=== PATIENT | female | born 1980 | race American Indian/Alaskan Native ===

== ENCOUNTER 2016-10-14 08:15 | Outpatient (CLI) | payer BC ==
--- NOTE | 2016-10-15 10:38 | Ultrasound Report ---
ULTRASOUND OF THE RIGHT UPPER QUADRANT: FINDINGS: There is increased echogenicity of the hepatic parenchyma with no focal masses. The gallbladder is normal. The common bile duct is normal in caliber. The right kidney is unremarkable. The pancreas is normal. The abdominal aorta is normal. IMPRESSION: Hepatic steatosis.
== END 2016-10-14 08:16 | disposition home or self-care (01) ==
LOC: SPVWC 08:16
PROVIDERS: ATTEND Internal Medicine
DX: K76.0 Fatty (change of) liver, not elsewhere classified (principal); R10.11 Right upper quadrant pain
CPT/HCPCS: 76705

== ENCOUNTER 2018-04-22 14:43 | Outpatient (CLI) | payer BC ==
--- NOTE | 2018-04-22 16:14 | Mammography Report ---
BILATERAL DIGITAL SCREENING MAMMOGRAM WITH CAD:04/22/18 CLINICAL: Baseline screening. FINDINGS: The breasts are almost entirely fatty.No mass, architectural distortion or suspicious calcifications. IMPRESSION: No mammographic evidence of malignancy. BI-RADS CATEGORY: 1 -- Negative RECOMMENDATION: Routine mammographic screening based on ACS guidelines. ACR BI-RADS MAMMOGRAPHIC CODES: 0 = Needs additional imaging evaluation; 1 = Negative; 2 = Benign; 3 = Probably benign; 4 = Suspicious; 5 = Malignant; 6 = Known biopsy-proven malignancy COMMENT: 1. Dense breast tissue, i.e., adenosis, fibrocystic changes, etc., may obscure an underlying neoplasm. 2. Approximately 10% of cancers are not detected with mammography. 3. A negative mammography report should not delay biopsy if a clinically suspicious mass is present.
== END 2018-04-22 14:44 | disposition home or self-care (01) ==
LOC: SPVWC 14:43
PROVIDERS: ATTEND Obstetrics & Gynecology
DX: Z12.31 Encounter for screening mammogram for malignant neoplasm of breast (principal)
CPT/HCPCS: 77067

== ENCOUNTER 2019-04-24 12:52 | Outpatient (CLI) | payer BC ==
--- NOTE | 2019-04-25 10:05 | Mammography Report ---
DIGITAL SCREENING MAMMOGRAM WITH CAD, 04/24/2019 INDICATION: Routine screening mammography. TECHNIQUE: Digital bilateral 2D mammography was obtained in the craniocaudal and mediolateral obliq ue projections. This examination was interpreted with the benefit of Computer-Aided Detection analysi s. COMPARISON: 04/22/2018 FINDINGS: Breast Density: The breasts are almost entirely fatty. There is no evidence of dominant mass, suspicious calcifications or architectural distortion in eithe r breast. IMPRESSION: BI-RADS Category 1: Negative. No mammographic evidence of malignancy. Unless otherwise clinically indicated, recommend patient return to routine screening mammography at age 40. A "normal" or negative report should not discourage follow up or biopsy of a clinically significant f inding. A written summary of these findings will be mailed to the patient. The patient will be entered into a mammography reporting system which will generate a reminder letter for the patient's next appointmen t at the appropriate interval. The [employer] recommends yearly mammograms starting at age 40 and continuing as l dionne as a woman is in good health. Breast MRI is recommended for women with an approximate 20-25% or greater lifetime risk of breast cancer, including women with a strong family history of breast or ova nasima cancer or who have been treated for Hodgkin's disease. Signer Name: Capo Kline MD Signed: 04/25/2019 7:45 AM Workstation Name: [id number]
== END 2019-04-24 12:53 | disposition home or self-care (01) ==
LOC: SPVWC 12:52
PROVIDERS: ATTEND Obstetrics & Gynecology
DX: Z12.31 Encounter for screening mammogram for malignant neoplasm of breast (principal)
CPT/HCPCS: 77067

== ENCOUNTER 2022-04-16 07:47 | Outpatient (CLI) | payer BC ==
--- NOTE | 2022-04-19 15:53 | Mammography Report ---
DIGITAL SCREENING MAMMOGRAM WITH CAD, 04/16/2022 CLINICAL INFORMATION / INDICATION: Routine screening mammography. TECHNIQUE: Digital bilateral 2D mammography was obtained in the craniocaudal and mediolateral obliqu e projections. This examination was interpreted with the benefit of Computer-Aided Detection analysis . COMPARISON: 04/24/2019, 04/22/2018 FINDINGS: Breast Density: The breasts are almost entirely fatty. No dominant mass, suspicious calcifications, or architectural distortion in either breast. There has been no significant interval change. IMPRESSION: No mammographic evidence of malignancy. Follow up recommendation: Routine yearly screening mammogram. BI-RADS Category 1: NEGATIVE A "normal" or negative report should not discourage follow up or biopsy of a clinically significant f inding. A written summary of these findings will be mailed to the patient. The patient will be entered into a mammography reporting system which will generate a reminder letter for the patient's next appointmen t at the appropriate interval. The [employer] recommends yearly mammograms starting at age 40 and continuing as l dionne as a woman is in good health. Breast MRI is recommended for women with an approximate 20-25% or greater lifetime risk of breast cancer, including women with a strong family history of breast or ova nasima cancer or who have been treated for Hodgkin's disease. Signer Name: Wesly Maldonado MD Signed: 04/19/2022 3:49 PM Workstation Name: [id number]
== END 2022-04-16 07:48 | disposition home or self-care (01) ==
LOC: MAMMO 07:47
PROVIDERS: ATTEND Obstetrics & Gynecology
DX: Z12.31 Encounter for screening mammogram for malignant neoplasm of breast (principal)
CPT/HCPCS: 77067